=== PATIENT | female | born 1990 | race Hispanic/Latino ===

== ENCOUNTER 2022-09-06 15:32 | Emergency (ER) | payer OTHER ==
[2022-09-06] MEDS ORDERED: Lidocaine 1% (PF) 30 ML VIAL ONE (15:55)
[2022-09-06] MEDS ORDERED: Bacitracin 1 PK ONE (16:17)
== END 2022-09-06 16:25 | disposition home or self-care (01) ==
LOC: NAV ERS 15:32
DX: S01.112A Laceration without foreign body of left eyelid and periocular area, initial encounter (principal); R11.0 Nausea; F17.210 Nicotine dependence, cigarettes, uncomplicated; Z72.820 Sleep deprivation; W22.09XA Striking against other stationary object, initial encounter
CPT/HCPCS: 12011; J2001